=== PATIENT | male | born 1945 | race Caucasian/White ===

== ENCOUNTER 2016-09-19 10:00 | Day surgery (SDC) | payer MEDICARE ==
[~2016-09-19] VITALS: Ht 177.8 cm; Wt 76.2 kg
[~2016-09-19 10:00] MED LIST: 0.9% Sodium Chloride 1,000 ML IV SCH; Sodium Chloride LOK Flush 10 mL Syringe IV PRN; fentaNYL-PF 50 mCg/mL 2 mL Inj IVPUSH PRN
[2016-09-19 10:46] VITALS: BP 137/80; PULSE 57; RESP 14; O2SAT 99
[2016-09-19 11:36] VITALS: BP 117/78; PULSE 62; RESP 14; O2SAT 97
[2016-09-19 11:45] VITALS: BP 109/65; PULSE 62; RESP 14; O2SAT 95
[2016-09-19 11:54] VITALS: BP 109/65; PULSE 80; RESP 16; O2SAT 100
--- NOTE | 2016-09-19 20:19 | ENDO ---
[address] [address] ENDOSCOPY PROCEDURE PATIENT: POLLY BENITEZ : 1945 MR#: [id number] ADMIT: 09/19/2016 JOB ID: [id number] PROCEDURE: Colonoscopy. INDICATION: Screening. Patient's ASA classification is I. Mallampati score is I. MEDICATIONS: Versed 5 mg, fentanyl 100 mcg. INSTRUMENT USED: PCF-H180AL. Prep quality was good. PROCEDURE DETAILS: After informed consent was obtained, the patient was brought into the GI suite, where he was placed on oxygen via nasal cannula and monitored with continuous pulse oximeter, telemetry, and blood pressure monitoring. A time-out was performed. Then, he was placed in a left lateral decubitus position and medications were administered for sedation. Digital rectal exam with palpation of the prostate was performed, which was unremarkable. The colonoscope was then inserted into the rectum and advanced under direct visualization to the cecum, which was identified by the presence of the ileocecal valve and appendiceal orifice. Once the sigmoid was reached, colonoscope was withdrawn back into the rectum as the mucosa and lumen were examined. In the rectum, retroflexion was performed. Following retroflexion, remaining air in the rectum was suctioned, and procedure was completed. FINDINGS: 1. At the hepatic flexure, there was a diminutive polyp that was removed with cold biopsy forceps. 2. In the descending colon, there was a diminutive polyp that was removed with cold biopsy forceps. 3. Retroflexed views in the rectum revealed moderate to large size internal hemorrhoids. IMPRESSION: 1. Hepatic flexure polyp. 2. Descending colon polyp. 3. Internal hemorrhoids. RECOMMENDATIONS: 1. Fiber rich diet. 2. Repeat colonoscopy pending polyp pathology results. COMPLICATIONS: None. ESTIMATED BLOOD LOSS: Less than 5 mL.
--- NOTE | 2016-09-23 15:03 | PATH ---
SURGICAL PATHOLOGY Attending Physician:Gordy Douglas CASE STATUS: Signed Out PATIENT NAME: POLLY BENITEZ PID: [id number] : 1945 DATE COLLECTED:09/19/2016 19:50 SPECIMEN: 1: Colon, Biopsy 2: Colon, Biopsy CLINICAL HISTORY: 1). HEPATIC FLEXURE POLYP X1 2). DESCENDING COLON POLYP X1 FINAL DIAGNOSIS: 1.HEPATIC FLEXURE, POLYP, BIOPSY: TUBULAR ADENOMA. 2.DESCENDING COLON, POLYP, BIOPSY: TUBULAR ADENOMA. ICD10 code D12.3 D12.4 GROSS DESCRIPTION: Received are two formalin-filled containers, both labeled with the patient' s name: 1. Received in formalin, labeled with the patient' s name and "1. Hepatic flexure polyp", is one fragment of finn, soft tissue measuring 0.1 x 0.1 x 0.1 cm. The fragment is totally submitted in cassette 1A. 2. Received in formalin, labeled with the patient' s name and "2. Descending colon polyp", is one fragment of finn, soft tissue measuring 0.1 x 0.1 x 0.1 cm. The fragment is totally submitted in cassette 2A. ([id number]) MICRO DESCRIPTION: See diagnosis. ICD-9 CODES: CPT CODES: 1: 40579 2: 31485 Electronically Signed Out Radhika Holt MD [facility] [address], [place] [address] Technical component performed at [facility], [address], [place], [address]
== END 2016-09-19 23:59 | disposition home or self-care (01) ==
LOC: END 10:00
PROVIDERS: ATTEND Internal Medicine Gastroenterology
DX: Z12.11 Encounter for screening for malignant neoplasm of colon (principal); D12.3 Benign neoplasm of transverse colon; D12.4 Benign neoplasm of descending colon; K64.4 Residual hemorrhoidal skin tags; K64.8 Other hemorrhoids
CPT/HCPCS: 45380; G0500; J7030